=== PATIENT | male | born 1970 | race Caucasian/White ===

== ENCOUNTER 2016-08-15 14:31 | Emergency (ER) | payer SELFPAY ==
[~2016-08-15 14:31] MED LIST: NO MEDICATIONS; PHENERGAN PO
== END 2016-08-15 16:07 | disposition home or self-care (01) ==
LOC: SED 14:31
DX: L50.9 Urticaria, unspecified (principal); F17.210 Nicotine dependence, cigarettes, uncomplicated
CPT/HCPCS: 96372; 99283; J2930